=== PATIENT | female | born 1950 ===

== ENCOUNTER 2017-07-29 09:20 | Inpatient (IN) | payer MEDICARE, MEDICAID ==
--- NOTE | 2017-07-29 09:38 | ED PDOC ---
HPI: Back Time Seen by Provider: 07/29/17 09:28 History Per: Patient Onset/Duration Of Symptoms: Days (1) Quality Of Discomfort: Stabbing Severity: Moderate Pain Scale Rating Of: 4 Previous Symptoms: Back Pain Associated Symptoms: None Exacerbating Factor(s): Movement Additional Complaint(s): Left sided low back pain radiates down left buttock and leg, Worse this AM. No weakness or parasthesias. Pain exacerbated by movement. No urinary sxs. Past Medical History - Medical History PMH: Diabetes, HTN, Hypercholesterolemia - Family History Family History: States: Unknown Family Hx - Allergies Allergies/Adverse Reactions: Allergies Allergy/AdvReac Type Severity Reaction Status Date / Time Unobtainable Allergy Verified 07/29/17 09:30 Review of Systems ROS Statement: Except As Marked, All Systems Reviewed And Found Negative Musculoskeletal: Positive for: Back Pain Physical Exam - Reviewed Nursing Documentation Reviewed: Yes Vital Signs Reviewed: Yes - Physical Exam Appears: Positive for: Non-toxic, No Acute Distress Head Exam: Positive for: ATRAUMATIC, NORMAL INSPECTION, NORMOCEPHALIC Skin: Positive for: Normal Color, Warm, DRY Eye Exam: Positive for: EOMI, Normal appearance, PERRL ENT: Positive for: Normal ENT Inspection Neck: Positive for: Normal, Painless ROM Cardiovascular/Chest: Positive for: Regular Rate, Rhythm Respiratory: Positive for: CNT, Normal Breath Sounds Gastrointestinal/Abdominal: Positive for: Normal Exam, Bowel Sounds, Soft Back: Positive for: Normal Inspection, Vertebral Tenderness (Lower lumbar area) Extremity: Positive for: Normal ROM Neurologic/Psych: Positive for: Alert, Oriented, Other (Pasin straight leg raise left side 30 degrees.). Negative for: Motor/Sensory Deficits Disposition - Clinical Impression Clinical Impression: Back pain - Patient ED Disposition Is Patient to be Admitted: Yes - Disposition Disposition Time: 09:39 Condition: FAIR - Pt Status Changed To: Hospital Disposition Of: Inpatient - Admit Certification Admit to Inpatient:: After my assessment, the patient will require hospitalization for at least two midnights. This is because of the severity of symptoms shown, intensity of services needed, and/or the medical risk in this patient being treated as an outpatient. - POA Present On Arrival: None
[2017-07-29 10:25] LABS: BASO # 0.1 K/uL (0.0-0.2); BASO % 0.8 % (0.0-2.0); EOS # 0.2 K/uL (0.0-0.7); EOS % 2.3 % (0.0-4.0); HEMOGLOBIN 12.6 g/dL (12.0-16.0); LYMPH # 1.3 K/uL (1.0-4.3); LYMPH % 18.4 % (20.0-40.0); MEAN CELL VOLUME 93.5 fl (81.0-99.0); MEAN CORPUSCULAR HEMOGLOBIN 31.3 pg (27.0-31.0); MEAN CORPUSCULAR HGB CONC 33.4 g/dL (33.0-37.0); MEAN PLATELET VOLUME 8.7 fl (7.2-11.7); MONO # 0.8 K/uL (0.0-0.8); MONO % 10.7 % (0.0-10.0); NEUT # 4.8 K/uL (1.8-7.0); NEUT % 67.8 % (50.0-75.0); NRBC % 0.1 % (0.0-0.0); RBC 4.03 Mil/uL (3.80-5.20); RED CELL DISTRIBUTION WIDTH 14.4 % (11.5-14.5); WHITE BLOOD COUNT 7.1 K/uL (4.8-10.8)
[2017-07-29 10:47] LABS: ALB/GLOB RATIO 1.2 (1.0-2.1); ALBUMIN 4.3 g/dL (3.5-5.0); ALT/SGPT 30 U/L (9-52); AST/SGOT 29 U/L (14-36); BLOOD UREA NITROGEN 13 mg/dl (7-17); CALCIUM 9.6 mg/dL (8.4-10.2); GFR AFRICAN-AMERICAN > 60; GFR NON-AFRICAN AMERICAN > 60
--- NOTE | 2017-07-29 11:32 | CP.PCM.HP ---
<Gordo Man - Last Filed: 07/29/17 11:38> History of Present Illness - History of Present Illness History of Present Illness: 67 y/o F with PMHx of NIDDM and HTN presents to ED c/o chronic, worsening lower back pain. As per patient pain is not improving with outpatient pain meds and has been worsening for the past year, associated with radiation to R/LE and paresthesias to both LE intermittent. Denies changes in urination or stools. Denies saddle anesthesia, headaches or fever. Patient she has had pain for many years that was controlled with NSAIDs but they stopped working. Admits Hx of fall 2 y/a. Has no other complains. Report of MRI of the LS as outpatient reviewed and shows multilevel lumbar disc herniation from L2-S1. Present on Admission - Present on Admission Any Indicators Present on Admission: No Review of Systems - Review of Systems All systems: reviewed and no additional remarkable complaints except - Cardiovascular Cardiovascular: absent: Chest Pain, Chest Pain at Rest, Edema - Respiratory Respiratory: absent: Cough, Dyspnea, Hemoptysis - Musculoskeletal Musculoskeletal: Back Pain, Muscle Cramps, Radiating Pain into Limb, Tingling Past Patient History - Past Social History Smoking Status: Never Smoked - CARDIAC Hx Hypercholesterolemia: Yes Hx Hypertension: Yes - PSYCHIATRIC Hx Substance Use: No - SURGICAL HISTORY Hx Surgeries: Yes Hx Vascular Surgery: Yes (VV) - ANESTHESIA Hx Anesthesia: Yes Meds Allergies/Adverse Reactions: Allergies Allergy/AdvReac Type Severity Reaction Status Date / Time No Known Allergies Allergy Verified 07/29/17 12:27 Physical Exam - Constitutional Appears: Non-toxic - Head Exam Head Exam: ATRAUMATIC - Eye Exam Eye Exam: EOMI, PERRL - ENT Exam ENT Exam: Mucous Membranes Moist - Respiratory Exam Respiratory Exam: Clear to Auscultation Bilateral, NORMAL BREATHING PATTERN. absent: Decreased Breath Sounds, Rales, Wheezes, Respiratory Distress - Cardiovascular Exam Cardiovascular Exam: +S1, +S2. absent: Gallop, REGULAR RHYTHM - GI/Abdominal Exam GI & Abdominal Exam: Normal Bowel Sounds, Soft. absent: Guarding, Rebound, Rigid, Tenderness - Extremities Exam Extremities exam: Negative for: normal inspection (VV B/L) - Back Exam Back exam: tenderness, vertebral tenderness - Neurological Exam Neurological exam: Alert, Oriented x3 - Psychiatric Exam Psychiatric exam: Normal Affect, Normal Mood - Skin Skin Exam: Normal Color, Warm Results - Vital Signs Recent Vital Signs: Last Vital Signs Temp 97.4 F L 07/29/17 09:39 Pulse 84 07/29/17 09:39 Resp 18 07/29/17 09:39 BP 136/77 07/29/17 10:35 Pulse Ox 99 07/29/17 09:39 - Labs Result Diagrams: 07/29/17 10:18 07/29/17 10:18 Labs: Laboratory Results - last 24 hr 07/29/17 07/29/17 07/29/17 10:18 10:18 10:18 WBC 7.1 RBC 4.03 Hgb 12.6 Hct 37.7 MCV 93.5 MCH 31.3 H MCHC 33.4 RDW 14.4 Plt Count 243 MPV 8.7 Neut % (Auto) 67.8 Lymph % (Auto) 18.4 L [place] % (Auto) 10.7 H Eos % (Auto) 2.3 Baso % (Auto) 0.8 Neut # (Auto) 4.8 Lymph # (Auto) 1.3 [place] # (Auto) 0.8 Eos # (Auto) 0.2 Baso # (Auto) 0.1 PT 11.0 INR 1.0 Sodium 144 Potassium 4.6 Chloride 105 Carbon Dioxide 30 Anion Gap 14 BUN 13 Creatinine 0.7 Est GFR ( Amer) > 60 Est GFR (Non-Af Amer) > 60 Random Glucose 91 Calcium 9.6 Total Bilirubin 0.2 AST 29 ALT 30 Alkaline Phosphatase 80 Total Protein 7.9 Albumin 4.3 Globulin 3.7 Albumin/Globulin Ratio 1.2 Assessment & Plan - Assessment and Plan (Free Text) Assessment: Intractable chronic lower back pain with multilevel lumbar disc herniations Pain control NeuroSx consult CBC, CMP, Coags WNL EKG: Sinus arrhythmia CXR no Active disease(Pending official report) NIDDM Controlled C/W DM meds HTN controlled: Will stop lisinopril for now SCDs Patient is cleared for Sx to lower back if needed at this time <Flakito Yee - Last Filed: 07/29/17 14:54> Results - Vital Signs Recent Vital Signs: Last Vital Signs Temp 97.4 F L 07/29/17 09:39 Pulse 84 07/29/17 09:39 Resp 18 07/29/17 09:39 BP 136/77 07/29/17 12:35 Pulse Ox 99 07/29/17 09:39 - Labs Result Diagrams: 07/29/17 10:18 07/29/17 10:18 Labs: Laboratory Results - last 24 hr 07/29/17 07/29/17 07/29/17 10:18 10:18 10:18 WBC 7.1 RBC 4.03 Hgb 12.6 Hct 37.7 MCV 93.5 MCH 31.3 H MCHC 33.4 RDW 14.4 Plt Count 243 MPV 8.7 Neut % (Auto) 67.8 Lymph % (Auto) 18.4 L [place] % (Auto) 10.7 H Eos % (Auto) 2.3 Baso % (Auto) 0.8 Neut # (Auto) 4.8 Lymph # (Auto) 1.3 [place] # (Auto) 0.8 Eos # (Auto) 0.2 Baso # (Auto) 0.1 PT 11.0 INR 1.0 Sodium 144 Potassium 4.6 Chloride 105 Carbon Dioxide 30 Anion Gap 14 BUN 13 Creatinine 0.7 Est GFR ( Amer) > 60 Est GFR (Non-Af Amer) > 60 Random Glucose 91 Calcium 9.6 Total Bilirubin 0.2 AST 29 ALT 30 Alkaline Phosphatase 80 Total Protein 7.9 Albumin 4.3 Globulin 3.7 Albumin/Globulin Ratio 1.2 Assessment & Plan - Assessment and Plan (Free Text) Plan: Pt seen on rounds with resident. Reviewed plan and agree with above documentation
--- NOTE | 2017-07-29 12:37 | RAD ---
HISTORY: preop COMPARISON: No prior. TECHNIQUE: Chest PA and lateral FINDINGS: LUNGS: No active pulmonary disease. PLEURA: No significant pleural effusion identified. No pneumothorax apparent. CARDIOVASCULAR: No radiographic findings to suggest acute or significant cardiovascular disease. OSSEOUS STRUCTURES: No significant abnormalities. VISUALIZED UPPER ABDOMEN: Normal. OTHER FINDINGS: None. IMPRESSION: No active disease.
[2017-07-29] MEDS ORDERED: Glucagon Recombinant 1 mg Inj IM PRN (13:17)
[2017-07-29] MEDS ORDERED: Dextrose 50% SYRINGE Inj (50 ml) IV PRN (13:17)
--- NOTE | 2017-07-29 17:14 | CP.PCM.CON ---
History of Present Illness - History of Present Illness History of Present Illness: The patient is a 67 y/o female with h/o DM, HTN and hypercholesterolemia who presented to the ER today with complaints of significant lower back pain. The pain had been intermittent over the past 2-3 years but had progressively worsened over the past 2-3 months. It has been increasingly difficult to perform her usual daily activities over the past few days such as walking, sitting and stairclimbing, prompting her visit to the ER. The pain has been resistant to conservative management with exercises and oral NSAID's and pain medications. The pain radiates down her right lower extremity frequently. There is also numbness and tingling that travels down her both LE. She denies any saddle parasthesias, bowel or bladder dysfunction. She denies CP/SOB/N/V/D/ headache/dizziness. Dr. Bowen was consulted for neurosurgical evaluation. Review of Systems - Review of Systems All systems: reviewed and no additional remarkable complaints except Review of Systems: As per HPI Past Patient History - Past Medical History & Family History Past Medical History?: Yes Past Family History: Reviewed and not pertinent - Past Social History Smoking Status: Never Smoked Chewing Tobacco Use: No Cigar Use: No Alcohol: None Drugs: Denies Domestic Violence: Negative - CARDIAC Hx Cardiac Disorders: Yes Hx Hypercholesterolemia: Yes Hx Hypertension: Yes - PULMONARY Hx Respiratory Disorders: No - NEUROLOGICAL Hx Neurological Disorder: No - HEENT Hx HEENT Problems: No - RENAL Hx Chronic Kidney Disease: No - ENDOCRINE/METABOLIC Hx Endocrine Disorders: Yes Hx Diabetes Mellitus Type 1: Yes - HEMATOLOGICAL/ONCOLOGICAL Hx Blood Disorders: No - INTEGUMENTARY Hx Dermatological Problems: No - MUSCULOSKELETAL/RHEUMATOLOGICAL Hx Musculoskeletal Disorders: Yes Hx Back Pain: Yes Hx Falls: Yes - GASTROINTESTINAL Hx Gastrointestinal Disorders: No - GENITOURINARY/GYNECOLOGICAL Hx Genitourinary Disorders: No - PSYCHIATRIC Hx Psychophysiologic Disorder: No Hx Substance Use: No - SURGICAL HISTORY Hx Surgeries: Yes (Bilateral LE varicose veins removal) Hx Vascular Surgery: Yes (Varicose vein) Other/Comment: Mole removal surgery - ANESTHESIA Hx Anesthesia: Yes Hx Anesthesia Reactions: No Hx Malignant Hyperthermia: No Has any member of the family had a problem w/ anesthesia?: No Meds Allergies/Adverse Reactions: Allergies Allergy/AdvReac Type Severity Reaction Status Date / Time No Known Allergies Allergy Verified 03/20/18 12:27 - Medications Medications: Current Medications Dextrose (Dextrose 50% Inj) 0 ml IV STAT PRN; Protocol PRN Reason: Hypoglycemia Protocol Dextrose (Glutose 15) 0 gm PO ONCE PRN; Protocol PRN Reason: Hypoglycemia Protocol Gabapentin (Neurontin) 300 mg PO Q8 [facility] Glipizide (Glucotrol Xl) 5 mg PO BID RITA Glucagon (Glucagen Diagnostic Kit) 0 mg IM STAT PRN; Protocol PRN Reason: Hypoglycemia Protocol Home Med (Empagliflozin [Jardiance]) 25 mg PO DAILY RITA Insulin Human Lispro (Humalog) 0 units SC ACHS [facility]ITA PRN Reason: Protocol Lisinopril (Zestril) 10 mg PO DAILY RITA Pantoprazole Sodium (Protonix Ec Tab) 40 mg PO DAILY RITA Physical Exam - Constitutional Appears: No Acute Distress - Head Exam Head Exam: ATRAUMATIC, NORMAL INSPECTION, NORMOCEPHALIC - Eye Exam Eye Exam: EOMI, Normal appearance, PERRL - ENT Exam ENT Exam: Mucous Membranes Moist - Neck Exam Neck exam: Positive for: Normal Inspection - Respiratory Exam Respiratory Exam: NORMAL BREATHING PATTERN - Back Exam Back exam: FULL ROM, paraspinal tenderness (R>L), vertebral tenderness - Neurological Exam Neurological exam: Alert, Oriented x3 Additional comments: Cranial nerves grossly intact, negative SLR bilaterally in supine and seated position - Expanded Neurological Exam Expanded Sensory exam: Lower Extremity 2 Point Discrimination: Normal, Lower Extremity Light Touch: Normal Neuro motor strength exam: Left Lower Extremity: 4, Right Lower Extremity: 5 DTR: Achilles Tendon Left: 2+, Achilles Tendon Right: 2+, Patellar Left: 2+, Patellar Right: 2+ - Psychiatric Exam Psychiatric exam: Normal Affect, Normal Mood - Skin Skin Exam: Normal Color Results - Vital Signs Recent Vital Signs: Last Vital Signs Temp 98.1 F 07/29/17 15:53 Pulse 66 07/29/17 15:59 Resp 19 07/29/17 15:59 BP 107/65 07/29/17 15:53 Pulse Ox 100 07/29/17 15:53 - Labs Result Diagrams: 07/29/17 10:18 07/29/17 10:18 Labs: Laboratory Results - last 24 hr 07/29/17 07/29/17 07/29/17 10:18 10:18 10:18 WBC 7.1 RBC 4.03 Hgb 12.6 Hct 37.7 MCV 93.5 MCH 31.3 H MCHC 33.4 RDW 14.4 Plt Count 243 MPV 8.7 Neut % (Auto) 67.8 Lymph % (Auto) 18.4 L [place] % (Auto) 10.7 H Eos % (Auto) 2.3 Baso % (Auto) 0.8 Neut # (Auto) 4.8 Lymph # (Auto) 1.3 [place] # (Auto) 0.8 Eos # (Auto) 0.2 Baso # (Auto) 0.1 PT 11.0 INR 1.0 Sodium 144 Potassium 4.6 Chloride 105 Carbon Dioxide 30 Anion Gap 14 BUN 13 Creatinine 0.7 Est GFR ( Amer) > 60 Est GFR (Non-Af Amer) > 60 POC Glucose (mg/dL) Random Glucose 91 Calcium 9.6 Total Bilirubin 0.2 AST 29 ALT 30 Alkaline Phosphatase 80 Total Protein 7.9 Albumin 4.3 Globulin 3.7 Albumin/Globulin Ratio 1.2 07/29/17 16:06 WBC RBC Hgb Hct MCV MCH MCHC RDW Plt Count MPV Neut % (Auto) Lymph % (Auto) [place] % (Auto) Eos % (Auto) Baso % (Auto) Neut # (Auto) Lymph # (Auto) [place] # (Auto) Eos # (Auto) Baso # (Auto) PT INR Sodium Potassium Chloride Carbon Dioxide Anion Gap BUN Creatinine Est GFR ( Amer) Est GFR (Non-Af Amer) POC Glucose (mg/dL) 68 Random Glucose Calcium Total Bilirubin AST ALT Alkaline Phosphatase Total Protein Albumin Globulin Albumin/Globulin Ratio Assessment & Plan (1) Lumbar disc herniation with radiculopathy Assessment and Plan: -pain control -WBAT with assistive device -NPO pMN -plan for OR tyler AM for Right L5-S1 gayatri-laminectomy -Procedure Risks/mikael/adv/disadv were discussed with the patient in detail and she understands. The patient agrees to proceed with listed procedure. -consult appreciated -patient's case and plan was discussed in agreement with Dr. Bowen Status: Acute
[2017-07-29] MEDS: Insulin Lispro (humaLOG) 100 Units/ml Inj SC SCH ×2 (18:41→22:00)
[2017-07-30] MEDS ORDERED: Dextrose 5%/Lactated Ringer's 1,000 ML IV SCH (02:30)
[2017-07-30] MEDS: Insulin Lispro (humaLOG) 100 Units/ml Inj SC SCH ×4 (06:35→21:35)
[2017-07-30] MEDS ORDERED: Rocuronium 10 mg/ml (5 ml) ONE (07:15)
[2017-07-30] MEDS ORDERED: Succinylcholine 200 mg/10 ml Inj IV ONE (07:15)
[2017-07-30] MEDS ORDERED: Midazolam 2 MG/2 ML VIAL ONE (07:15)
[2017-07-30] MEDS ORDERED: Propofol 10 mg/ml Inj (20 ML) ONE (07:15)
[2017-07-30] MEDS ORDERED: ePHEDrine 50 mg/ml Inj ONE (07:15)
[2017-07-30] MEDS ORDERED: Lidocaine 4% (Laryng-O-Jet) Kit MM ONE (07:15)
[2017-07-30] MEDS ORDERED: Bupivacaine HCl 0.5% PF (10 ml) Inj ONE ×2 (07:16→08:23)
[2017-07-30] MEDS ORDERED: ceFAZolin IV 2 gm in Dextrose 2 GM/50 ML BAG IVPB ONE (07:17)
[2017-07-30] MEDS ORDERED: Lidocaine 1% w Epi 1:100,000 Inj ONE (07:17)
[2017-07-30] MEDS ORDERED: Thrombin Topical 5,000 Int Units Spray Kit ONE (07:17)
[2017-07-30] MEDS ORDERED: Absorbable Gelatin Sponge Size 100 ONE (07:17)
[2017-07-30] MEDS ORDERED: Lactated Ringer's 1,000 ML IV ONE (07:30)
[2017-07-30] MEDS ORDERED: Lidocaine 1% w Epi 1:100,000 Inj INJ ONE (07:48)
[2017-07-30] MEDS ORDERED: Absorbable Gelatin Sponge Size 100 TP ONE (08:20)
[2017-07-30] MEDS ORDERED: Thrombin Topical 5,000 Int Units Spray Kit TOP ONE (08:20)
[2017-07-30] MEDS ORDERED: HEMOSTATIC MATRIX 10 ML DIS.NEEDLE TOP ONE (08:25)
[2017-07-30] MEDS ORDERED: Neostigmine 1:1000 (1 mg/ml) Inj ONE (08:25)
[2017-07-30] MEDS ORDERED: Bupivacaine HCl 0.5% PF (10 ml) Inj IJ ONE ×2 (08:30→08:50)
--- NOTE | 2017-07-30 09:04 | PCM.SURG1 ---
Surgeon's Initial Post Op Note - Surgeon's Notes Surgeon: Ralph Bowen MD Casing Trimmer: Donovan KELSEY Type of Anesthesia: General Endo Anesthesia Administered By: Melchor Gann MD Pre-Operative Diagnosis: L4-5 and L5-S1 HNP Operative Findings: L4-5/L5-S1 HNP, Right L5-S1 facet arthropathy Post-Operative Diagnosis: same Operation Performed: Right L4-S1 gayatri-laminectomy, medial facetectomy and decompression Specimen/Specimens Removed: none Estimated Blood Loss: EBL {In ML}: 25 Blood Products Given: N/A Drains Used: Cecil Sands (x1) Post-Op Condition: Good Date of Surgery/Procedure: 07/30/17 Time of Surgery/Procedure: 07:45
[2017-07-30] MEDS ORDERED: Sodium Chloride 0.9% 1,000 ML IV SCH (09:15)
--- NOTE | 2017-07-30 09:45 | CP.PCM.PN ---
Subjective - Date & Time of Evaluation Date of Evaluation: 07/30/17 Time of Evaluation: 10:30 - Subjective Subjective: Evaluated after surgical intervention this morning at the recovery room .Stable , c/o sore throat, denies CP, SOB, nausea. Lower back pain mild at this time. Patient recently received dose of morphine. Still slightly somnolent after anesthesia Objective - Vital Signs/Intake and Output Vital Signs (last 24 hours): Temp Pulse Resp BP Pulse Ox 97.1 F L 70 20 139/78 100 07/30/17 09:35 07/30/17 09:35 07/30/17 09:35 07/30/17 09:35 07/30/17 09:35 Intake and Output: 07/30/17 07/30/17 06:59 18:59 Intake Total 900 Balance 900 - Medications Medications: Current Medications Acetaminophen (Tylenol 325mg Tab) 650 mg PO Q4 PRN PRN Reason: Fever 101 degrees fahrenheit Cyclobenzaprine HCl (Flexeril) 5 mg PO TID PRN PRN Reason: Muscle spasm Dextrose (Dextrose 50% Inj) 0 ml IV STAT PRN; Protocol PRN Reason: Hypoglycemia Protocol Dextrose (Glutose 15) 0 gm PO ONCE PRN; Protocol PRN Reason: Hypoglycemia Protocol Docusate Sodium (Colace) 100 mg PO BID RITA Gabapentin (Neurontin) 300 mg PO Q8 [facility] Last Admin: 07/30/17 00:08 Dose: 300 mg Glipizide (Glucotrol Xl) 5 mg PO BID RITA Glucagon (Glucagen Diagnostic Kit) 0 mg IM STAT PRN; Protocol PRN Reason: Hypoglycemia Protocol Home Med (Empagliflozin [Jardiance]) 25 mg PO DAILY [facility] Dextrose/Lactated Ringer's (Dextrose 5%/Lactated Ringer's) 1,000 mls @ 110 mls/ hr IV .Q9H6M [facility] Stop: 07/31/17 02:28 Last Admin: 07/30/17 02:42 Dose: 110 mls/hr Cefazolin Sodium/Dextrose (Ancef Iv 1 Gm Duplex) 1 gm in 50 mls @ 50 mls/hr IVPB Q8 [facility]ITA PRN Reason: Protocol Stop: 07/31/17 17:59 Sodium Chloride (Sodium Chloride 0.9%) 1,000 mls @ 100 mls/hr IV .Q10H [facility] Stop: 07/31/17 09:11 Insulin Human Lispro (Humalog) 0 units SC ACHS [facility] PRN Reason: Protocol Last Admin: 07/30/17 06:35 Dose: Not Given Lisinopril (Zestril) 10 mg PO DAILY [facility] Metoclopramide HCl (Reglan) 10 mg IVP ONCE PRN PRN Reason: Nausea/Vomiting Stop: 07/30/17 11:03 Morphine Sulfate (Morphine) 2 mg IVP Q10M PRN PRN Reason: Pain, severe (8-10) Stop: 07/30/17 11:03 Last Admin: 07/30/17 09:35 Dose: 2 mg Morphine Sulfate (Morphine) 2 mg IVP Q4 PRN PRN Reason: Pain, severe (8-10) Ondansetron HCl (Zofran Inj) 4 mg IVP ONCE PRN PRN Reason: Nausea/Vomiting Oxycodone/Acetaminophen (Percocet 5/325 Mg Tab) 2 tab PO Q4 PRN PRN Reason: Pain, severe (8-10) Stop: 08/02/17 09:11 Pantoprazole Sodium (Protonix Ec Tab) 40 mg PO DAILY [facility] - Labs Labs: 07/29/17 10:18 07/29/17 10:18 PT 11.0 Seconds (9.8-13.1) 07/29/17 10:18 INR 1.0 (0.9-1.2) 07/29/17 10:18 - Constitutional Appears: Non-toxic - Eye Exam Eye Exam: PERRL - ENT Exam ENT Exam: Mucous Membranes Moist - Respiratory Exam Respiratory Exam: Clear to Ausculation Bilateral, NORMAL BREATHING PATTERN. absent: Decreased Breath Sounds, Rales, Respiratory Distress - Cardiovascular Exam Cardiovascular Exam: REGULAR RHYTHM, +S1, +S2. absent: Gallop - GI/Abdominal Exam GI & Abdominal Exam: Soft, Tenderness (mild, diffuse), Normal Bowel Sounds. absent: Distended, Guarding, Rigid, Rebound - Extremities Exam Extremities Exam: Normal Capillary Refill. absent: Joint Swelling, Pedal Edema Additional comments: No signs of acute neurovascular compromise - Neurological Exam Neurological Exam: Alert, Awake, Oriented x3 - Psychiatric Exam Psychiatric exam: Normal Affect, Normal Mood - Skin Skin Exam: Normal Color, Warm Assessment and Plan - Assessment and Plan (Free Text) Assessment: S/P Lumbar laminectomy L5-S1 POD0 Stable Neurosurgery consult appreciated Advance diet as tolerated Pain control and supportive measures C/W Current meds
--- NOTE | 2017-07-30 11:13 | CARD ---
APPROVED REPORT EKG Measurement Heart [id number] <Conclusion> Normal sinus rhythm with sinus arrhythmia Normal ECG
[2017-07-30] MEDS: GlipiZIDE 5 mg SR Tab PO SCH ×2 (13:37→17:13)
[2017-07-30] MEDS: Pantoprazole 40 mg EC Tab PO SCH (13:38)
--- NOTE | 2017-07-30 14:05 | RAD ---
PROCEDURE: Intraoperative Fluoroscopy. HISTORY: LUMBAR LAMINECTOMY FINDINGS: Fluoroscopic assistance was provided. 3.7 seconds fluoroscopy time utilized during this procedure. Radiation dose = 1.98 mGy. Please refer to the operative report for additional details.
--- NOTE | 2017-07-30 14:08 | OP ---
PROCEDURE DATE: 07/30/2017 PREOPERATIVE DIAGNOSIS: Lumbar spondylosis. POSTOPERATIVE DIAGNOSIS: Lumbar spondylosis. PROCEDURE: Right L4-L5 and L5-S1 hemilaminotomy and medial facetectomy and decompression. SURGEON: Ralph Bowen MD GOLD ASSAYER: Donovan ADAM, he stayed throughout the case from the beginning to the end, helped me perform the surgery. DESCRIPTION OF PROCEDURE: The patient was brought to the operating room. Anesthetized with general endotracheal anesthesia, placed in a prone position on the Cecil table. Care was taken to protect all pressure points. Back of the lumbar area thoroughly prepped and draped in same sterile manner after marking for a skin incision for lumbar laminectomy. After prepping and draping the area, skin has been incised and bleeding skin has been controlled by bipolar director special education. After using a Bovie director special education, paraspinal muscles have been detached, attachments of spinous process and lamina of L4, L5 and S1. Identification levels have been done with help of a fluoroscopy. A Selena retractor has been applied to alter the facet joint of L5-S1. By using a high speed drill, the lamina of L5-S1 medial part of the facets L4 had been drilled. Drilling is continued top and bottom of the ligamentum flavum has seen. Drilling is also continued on the medial facets till the turn of ligament has been seen. Once this has been done, thinned out some lamina, medial part of the facets and ligamentum flavum has been removed, decompressing this area. Similarly at L4-L5, hemilaminotomy, medial facetectomy by thinning the bone out and by removing the thinned out bone, allowing the ligamentum flavum decompression has been achieved at L4-L5 as well. After hemostasis best achieved, Cecil drain was placed in the wound, brought out through a separate stab near skin incision. Fascia across the interspinous ligaments and spinous process with 1 Vicryl, subcutaneous tissue with 3 Vicryl and skin has been closed with intradermal 3 Vicryl stitches. The patient tolerated the procedure. After the procedure, mobilized to the recovery room in stabilized condition. Ralph Bowen MD [facility] # [id number]
[2017-07-30] MEDS: ceFAZolin IV 1 gm in Dextrose 1 GM/50 ML BAG IVPB SCH (17:10)
[2017-07-31] MEDS: ceFAZolin IV 1 gm in Dextrose 1 GM/50 ML BAG IVPB SCH ×3 (00:54→16:41)
[2017-07-31] MEDS: Oxycodone/Acetaminophen 5/325 mg Tab PO PRN ×3 (03:46→22:11)
[2017-07-31 07:01] LABS: HEMOGLOBIN 11.5 g/dL (12.0-16.0); MEAN CELL VOLUME 93.3 fl (81.0-99.0); MEAN CORPUSCULAR HGB CONC 33.3 g/dL (33.0-37.0); RBC 3.7 Mil/uL (3.80-5.20); RED CELL DISTRIBUTION WIDTH 14.3 % (11.5-14.5); WHITE BLOOD COUNT 9.2 K/uL (4.8-10.8)
[2017-07-31 07:15] LABS: BLOOD UREA NITROGEN 13 mg/dl (7-17); CALCIUM 8.7 mg/dL (8.4-10.2); GFR AFRICAN-AMERICAN > 60; GFR NON-AFRICAN AMERICAN > 60
[2017-07-31] MEDS ORDERED: Simethicone 80 mg Chewtab PO PRN (07:50)
--- NOTE | 2017-07-31 08:09 | CP.PCM.PN ---
Subjective - Date & Time of Evaluation Date of Evaluation: 07/31/17 Time of Evaluation: 08:07 - Subjective Subjective: Patient seen and examined at bedside comfortable. She states that her lower back pain is much improved as compared to before her procedure. She is also moving her RLE better and there are less parasthesias. She has been able to void without difficulty but is having mid lower abd pain. She has not passed much gas this AM. No acute events overnight. Objective - Vital Signs/Intake and Output Vital Signs (last 24 hours): Temp Pulse Resp BP Pulse Ox 99.2 F 68 18 116/65 96 07/31/17 03:50 07/31/17 03:50 07/31/17 03:50 07/31/17 03:50 07/31/17 03:50 - Medications Medications: Current Medications Acetaminophen (Tylenol 325mg Tab) 650 mg PO Q4 PRN PRN Reason: Fever 101 degrees fahrenheit Cyclobenzaprine HCl (Flexeril) 5 mg PO TID PRN PRN Reason: Muscle spasm Dextrose (Dextrose 50% Inj) 0 ml IV STAT PRN; Protocol PRN Reason: Hypoglycemia Protocol Dextrose (Glutose 15) 0 gm PO ONCE PRN; Protocol PRN Reason: Hypoglycemia Protocol Docusate Sodium (Colace) 100 mg PO BID [facility] Last Admin: 07/30/17 17:18 Dose: 100 mg Gabapentin (Neurontin) 300 mg PO Q8 [facility] Last Admin: 07/31/17 01:17 Dose: 300 mg Glipizide (Glucotrol Xl) 5 mg PO BID [facility] Last Admin: 07/30/17 17:13 Dose: 5 mg Glucagon (Glucagen Diagnostic Kit) 0 mg IM STAT PRN; Protocol PRN Reason: Hypoglycemia Protocol Home Med (Empagliflozin [Jardiance]) 25 mg PO DAILY [facility] Last Admin: 07/30/17 09:00 Dose: Not Given Cefazolin Sodium/Dextrose (Ancef Iv 1 Gm Duplex) 1 gm in 50 mls @ 50 mls/hr IVPB Q8 [facility] PRN Reason: Protocol Stop: 07/31/17 17:59 Last Admin: 07/31/17 00:54 Dose: 50 mls/hr Sodium Chloride (Sodium Chloride 0.9%) 1,000 mls @ 100 mls/hr IV .Q10H [facility] Stop: 07/31/17 09:11 Last Admin: 07/30/17 15:00 Dose: 100 mls/hr Insulin Human Lispro (Humalog) 0 units SC ACHS [facility] PRN Reason: Protocol Last Admin: 07/30/17 21:35 Dose: Not Given Lisinopril (Zestril) 10 mg PO DAILY [facility] Last Admin: 07/30/17 13:38 Dose: Not Given Morphine Sulfate (Morphine) 2 mg IVP Q4 PRN PRN Reason: Pain, severe (8-10) Last Admin: 07/31/17 01:22 Dose: 2 mg Ondansetron HCl (Zofran Inj) 4 mg IVP ONCE PRN PRN Reason: Nausea/Vomiting Oxycodone/Acetaminophen (Percocet 5/325 Mg Tab) 2 tab PO Q4 PRN PRN Reason: Pain, severe (8-10) Stop: 08/02/17 09:11 Last Admin: 07/31/17 03:46 Dose: 2 tab Pantoprazole Sodium (Protonix Ec Tab) 40 mg PO DAILY [facility] Last Admin: 07/30/17 13:38 Dose: Not Given Simethicone (Mylicon Chew Tab) 80 mg PO QID PRN PRN Reason: Flatulence - Labs Labs: 07/31/17 05:35 07/31/17 05:35 PT 11.0 Seconds (9.8-13.1) 07/29/17 10:18 INR 1.0 (0.9-1.2) 07/29/17 10:18 - Back Exam Additional comments: Lumbar spine: Dressings clean/dry/intact, drain with mild sangiunous drainage ( 75cc output overnight), mild tenderness 2nd to surgery, neg SLR b/l, sensation intact DP/SP/TN, motor intact EHL/FHL/TA/G/Q/HS/hip flexors, pedal pulses intact , compartments soft and NT b/l Assessment and Plan (1) Lumbar disc herniation with radiculopathy Assessment & Plan: Patient is POD#1 s/p R L4-S1 hemilaminectomy doing well -Abd pain most likely due to gas, simethicone prn, OOB -Drain output high, will keep and monitor until below 50cc q shift, possibly pull tyler AM -Continue IV abx until drain removed -PT/OT WBAT with assistive device, prepare for d/c -care as per medical team -d/c planning -case and plan d/w Dr. Bowen in agreement Status: Acute
[2017-07-31] MEDS: Insulin Lispro (humaLOG) 100 Units/ml Inj SC SCH ×4 (08:37→22:00)
[2017-07-31] MEDS: Pantoprazole 40 mg EC Tab PO SCH (08:42)
[2017-07-31] MEDS ORDERED: Enoxaparin 40 mg Syringe SC SCH (09:00)
[2017-07-31] MEDS: GlipiZIDE 5 mg SR Tab PO SCH ×2 (10:43→16:48)
--- NOTE | 2017-07-31 11:04 | CP.PCM.PN ---
Subjective - Date & Time of Evaluation Date of Evaluation: 07/31/17 Time of Evaluation: 09:00 - Subjective Subjective: POD1 Stable. C/O suprapubic pain, denies dysuria or urinary retention. No BM for 2 days. Feels nauseated. Denies vomiting, CP, SOB, palpitations. Lower back pain is mild and controlled with meds. Drainage 25ml, sanguineous. Afebrile Objective - Vital Signs/Intake and Output Vital Signs (last 24 hours): Temp Pulse Resp BP Pulse Ox 98.3 F 70 20 121/61 92 L 07/31/17 08:10 07/31/17 09:20 07/31/17 08:10 07/31/17 09:20 07/31/17 09:20 - Medications Medications: Current Medications Acetaminophen (Tylenol 325mg Tab) 650 mg PO Q4 PRN PRN Reason: Fever 101 degrees fahrenheit Cyclobenzaprine HCl (Flexeril) 5 mg PO TID PRN PRN Reason: Muscle spasm Dextrose (Dextrose 50% Inj) 0 ml IV STAT PRN; Protocol PRN Reason: Hypoglycemia Protocol Dextrose (Glutose 15) 0 gm PO ONCE PRN; Protocol PRN Reason: Hypoglycemia Protocol Docusate Sodium (Colace) 100 mg PO BID [facility] Last Admin: 07/31/17 10:42 Dose: 100 mg Gabapentin (Neurontin) 300 mg PO Q8 [facility] Last Admin: 07/31/17 10:43 Dose: 300 mg Glipizide (Glucotrol Xl) 5 mg PO BID [facility] Last Admin: 07/31/17 10:43 Dose: 5 mg Glucagon (Glucagen Diagnostic Kit) 0 mg IM STAT PRN; Protocol PRN Reason: Hypoglycemia Protocol Home Med (Empagliflozin [Jardiance]) 25 mg PO DAILY [facility] Last Admin: 07/31/17 10:42 Dose: 25 mg Cefazolin Sodium/Dextrose (Ancef Iv 1 Gm Duplex) 1 gm in 50 mls @ 50 mls/hr IVPB Q8 [facility] PRN Reason: Protocol Stop: 07/31/17 17:59 Last Admin: 07/31/17 08:36 Dose: 50 mls/hr Insulin Human Lispro (Humalog) 0 units SC ACHS [facility] PRN Reason: Protocol Last Admin: 07/31/17 08:37 Dose: Not Given Losartan Potassium (Cozaar) 50 mg PO DAILY [facility] Morphine Sulfate (Morphine) 2 mg IVP Q4 PRN PRN Reason: Pain, severe (8-10) Last Admin: 07/31/17 01:22 Dose: 2 mg Ondansetron HCl (Zofran Inj) 4 mg IVP ONCE PRN PRN Reason: Nausea/Vomiting Oxycodone/Acetaminophen (Percocet 5/325 Mg Tab) 2 tab PO Q4 PRN PRN Reason: Pain, severe (8-10) Stop: 08/02/17 09:11 Last Admin: 07/31/17 03:46 Dose: 2 tab Pantoprazole Sodium (Protonix Ec Tab) 40 mg PO DAILY [facility] Last Admin: 07/31/17 08:42 Dose: 40 mg Simethicone (Mylicon Chew Tab) 80 mg PO QID PRN PRN Reason: Flatulence Last Admin: 07/31/17 08:42 Dose: 80 mg - Labs Labs: 07/31/17 05:35 07/31/17 05:35 PT 11.0 Seconds (9.8-13.1) 07/29/17 10:18 INR 1.0 (0.9-1.2) 07/29/17 10:18 - Constitutional Appears: Non-toxic - Eye Exam Eye Exam: PERRL - ENT Exam ENT Exam: Mucous Membranes Moist - Respiratory Exam Respiratory Exam: Clear to Ausculation Bilateral, NORMAL BREATHING PATTERN. absent: Decreased Breath Sounds, Rales, Wheezes - Cardiovascular Exam Cardiovascular Exam: REGULAR RHYTHM, +S1, +S2. absent: Gallop - GI/Abdominal Exam GI & Abdominal Exam: Soft, Tenderness (Mild suprapubic), Normal Bowel Sounds. absent: Distended, Guarding, Rigid, Rebound - Extremities Exam Extremities Exam: Normal Capillary Refill. absent: Calf Tenderness, Normal Inspection (Varicous veins) - Neurological Exam Neurological Exam: Alert, Awake - Psychiatric Exam Psychiatric exam: Normal Affect, Normal Mood - Skin Skin Exam: Normal Color, Warm Assessment and Plan - Assessment and Plan (Free Text) Assessment: POD1 Lumbar laminectomy Stable Abd pain poss due to constipation. Patient on Colace. Will give 1 dose of lactulose now Unlikely urinary at this point. Will monitor C/w pain meds and supportive measures To receive 1 more dose(4) of Ancef IV Discharge planning tomorrow if less Sx drainage and improvement in general status
[2017-08-01 00:06] VITALS: TEMP 97.9
[2017-08-01] MEDS: ceFAZolin 1 GM in Sodium Chloride 0.9% 100 ML IVPB SCH ×2 (01:05→12:32)
[2017-08-01] MEDS: Oxycodone/Acetaminophen 5/325 mg Tab PO PRN ×2 (03:33→10:47)
[2017-08-01 07:48] VITALS: RESP 20
[2017-08-01] MEDS: Insulin Lispro (humaLOG) 100 Units/ml Inj SC SCH ×2 (08:18→11:21)
[2017-08-01] MEDS: GlipiZIDE 5 mg SR Tab PO SCH (08:20)
[2017-08-01] MEDS: Pantoprazole 40 mg EC Tab PO SCH (08:20)
[2017-08-01 08:21] VITALS: BP 105/61
[2017-08-01] MEDS ORDERED: Morphine 4 MG/ML VIAL IVP PRN (10:45)
[2017-08-01 11:08] VITALS: PULSE 80; O2SAT 98
--- NOTE | 2017-08-01 13:41 | CP.PCM.PN ---
Subjective - Date & Time of Evaluation Date of Evaluation: 08/01/17 Time of Evaluation: 13:39 - Subjective Subjective: Patient with family at bedside. Patient says she is feeling much better today. Still complaining of pain down RLE, but says that it is better after the surgery. Objective - Vital Signs/Intake and Output Vital Signs (last 24 hours): Temp Pulse Resp BP Pulse Ox 97.9 F 80 20 105/61 98 08/01/17 07:47 08/01/17 10:10 08/01/17 07:47 08/01/17 08:20 08/01/17 10:10 Intake and Output: 08/01/17 08/01/17 06:59 18:59 Intake Total 100 Output Total 20 Balance 80 - Medications Medications: Current Medications Acetaminophen (Tylenol 325mg Tab) 650 mg PO Q4 PRN PRN Reason: Fever 101 degrees fahrenheit Bacitracin (Bacitracin Oint) 1 applic TOP BID [facility] Cyclobenzaprine HCl (Flexeril) 5 mg PO TID PRN PRN Reason: Muscle spasm Dextrose (Dextrose 50% Inj) 0 ml IV STAT PRN; Protocol PRN Reason: Hypoglycemia Protocol Dextrose (Glutose 15) 0 gm PO ONCE PRN; Protocol PRN Reason: Hypoglycemia Protocol Docusate Sodium (Colace) 100 mg PO BID [facility] Last Admin: 08/01/17 08:20 Dose: 100 mg Gabapentin (Neurontin) 300 mg PO Q8 [facility] Last Admin: 08/01/17 08:20 Dose: 300 mg Glipizide (Glucotrol Xl) 5 mg PO BID [facility] Last Admin: 08/01/17 08:20 Dose: 5 mg Glucagon (Glucagen Diagnostic Kit) 0 mg IM STAT PRN; Protocol PRN Reason: Hypoglycemia Protocol Home Med (Empagliflozin [Jardiance]) 25 mg PO DAILY [facility] Last Admin: 08/01/17 08:21 Dose: 25 mg Insulin Human Lispro (Humalog) 0 units SC ACHS [facility] PRN Reason: Protocol Last Admin: 08/01/17 11:21 Dose: Not Given Losartan Potassium (Cozaar) 50 mg PO DAILY [facility] Last Admin: 08/01/17 08:20 Dose: 50 mg Morphine Sulfate (Morphine) 2 mg IVP Q4 PRN PRN Reason: Pain, severe (8-10) Ondansetron HCl (Zofran Inj) 4 mg IVP ONCE PRN PRN Reason: Nausea/Vomiting Oxycodone/Acetaminophen (Percocet 5/325 Mg Tab) 2 tab PO Q4 PRN PRN Reason: Pain, severe (8-10) Stop: 08/02/17 09:11 Last Admin: 08/01/17 10:47 Dose: 2 tab Pantoprazole Sodium (Protonix Ec Tab) 40 mg PO DAILY [facility] Last Admin: 08/01/17 08:20 Dose: 40 mg Simethicone (Mylicon Chew Tab) 80 mg PO QID PRN PRN Reason: Flatulence Last Admin: 07/31/17 08:42 Dose: 80 mg - Labs Labs: 07/31/17 05:35 07/31/17 05:35 PT 11.0 Seconds (9.8-13.1) 07/29/17 10:18 INR 1.0 (0.9-1.2) 07/29/17 10:18 - Back Exam Additional comments: RIGOBERTO 20cc, pulled. Incision intact, dry, no erythema noted skin abrasions to B flanks from abdominal binder, patient says it feels better with brace so will keep intact +great toe ext/DF/PF/knee flex/ext, sensation itnact BLE, calves soft NT neg homasn Assessment and Plan (1) Lumbar spondylosis Assessment & Plan: POD#2 s/p R L4/L5 and L5/S1 hemilaminectomy, medial facectecomy and decompression drain out PT notes appreciated, tolerating ambulation well bacitracin to abrasions, continue binder prn stable for d/c home PT recommends home services d/w dr. Bowen, agrees with above f/u Dr. Bowen approx 2 weeks call for appt Status: Acute
--- NOTE | 2017-08-01 16:01 | CP.PCM.DIS ---
Provider - Provider Date of Admission: 07/29/17 09:30 Attending physician: Flakito Yee MD Consults: neurosurgery Time Spent in preparation of Discharge (in minutes): 30 Diagnosis - Discharge Diagnosis (1) Back pain Status: Acute (2) Lumbar disc herniation with radiculopathy Status: Acute (3) Lumbar spondylosis Status: Acute Hospital Course - Lab Results Lab Results: Most Recent Lab Values WBC 9.2 K/uL (4.8-10.8) 07/31/17 05:35 RBC 3.70 Mil/uL (3.80-5.20) L 07/31/17 05:35 Hgb 11.5 g/dL (12.0-16.0) L 07/31/17 05:35 Hct 34.5 % (34.0-47.0) 07/31/17 05:35 MCV 93.3 fl (81.0-99.0) 07/31/17 05:35 MCH 31.0 pg (27.0-31.0) 07/31/17 05:35 MCHC 33.3 g/dL (33.0-37.0) 07/31/17 05:35 RDW 14.3 % (11.5-14.5) 07/31/17 05:35 Plt Count 232 K/uL (130-400) 07/31/17 05:35 MPV 8.7 fl (7.2-11.7) 07/29/17 10:18 Neut % (Auto) 67.8 % (50.0-75.0) 07/29/17 10:18 Lymph % (Auto) 18.4 % (20.0-40.0) L 07/29/17 10:18 Real % (Auto) 10.7 % (0.0-10.0) H 07/29/17 10:18 Eos % (Auto) 2.3 % (0.0-4.0) 07/29/17 10:18 Baso % (Auto) 0.8 % (0.0-2.0) 07/29/17 10:18 Neut # (Auto) 4.8 K/uL (1.8-7.0) 07/29/17 10:18 Lymph # (Auto) 1.3 K/uL (1.0-4.3) 07/29/17 10:18 Real # (Auto) 0.8 K/uL (0.0-0.8) 07/29/17 10:18 Eos # (Auto) 0.2 K/uL (0.0-0.7) 07/29/17 10:18 Baso # (Auto) 0.1 K/uL (0.0-0.2) 07/29/17 10:18 PT 11.0 Seconds (9.8-13.1) 07/29/17 10:18 INR 1.0 (0.9-1.2) 07/29/17 10:18 Sodium 141 mmol/l (132-148) 07/31/17 05:35 Potassium 4.5 MMOL/L (3.6-5.0) 07/31/17 05:35 Chloride 103 mmol/L (98-107) 07/31/17 05:35 Carbon Dioxide 27 mmol/L (22-30) 07/31/17 05:35 Anion Gap 16 (10-20) 07/31/17 05:35 BUN 13 mg/dl (7-17) 07/31/17 05:35 Creatinine 0.9 mg/dl (0.7-1.2) 07/31/17 05:35 Est GFR ( Amer) > 60 07/31/17 05:35 Est GFR (Non-Af Amer) > 60 07/31/17 05:35 POC Glucose (mg/dL) 89 mg/dL (65-110) 08/01/17 05:43 Random Glucose 120 mg/dL (65-105) H 07/31/17 05:35 Calcium 8.7 mg/dL (8.4-10.2) 07/31/17 05:35 Total Bilirubin 0.2 mg/dl (0.2-1.3) 07/29/17 10:18 AST 29 U/L (14-36) 07/29/17 10:18 ALT 30 U/L (9-52) 07/29/17 10:18 Alkaline Phosphatase 80 U/L (38-126) 07/29/17 10:18 Total Protein 7.9 G/DL (6.3-8.2) 07/29/17 10:18 Albumin 4.3 g/dL (3.5-5.0) 07/29/17 10:18 Globulin 3.7 gm/dL (2.2-3.9) 07/29/17 10:18 Albumin/Globulin Ratio 1.2 (1.0-2.1) 07/29/17 10:18 - Hospital Course Hospital Course: 67 y/o with chronic lower back pain with radiculopathy and functional limitation was admitted to [facility] and underwent lumbar laminectomy by Neurosurgery team. She is POD2 today and remained stable and improving after Sx. Today draiange was removed by NeurSx and patient is cleared to be DC home and f/u as outpatient Discharge Exam - Head Exam Head Exam: ATRAUMATIC, NORMAL INSPECTION, NORMOCEPHALIC - Eye Exam Eye Exam: EOMI, PERRL - ENT Exam ENT Exam: Mucous Membranes Moist - Respiratory Exam Respiratory Exam: Clear to PA & Lateral, NORMAL BREATHING PATTERN, UNREMARKABLE - Cardiovascular Exam Cardiovascular Exam: REGULAR RHYTHM, +S1, +S2. absent: Gallop - GI/Abdominal Exam GI & Abdominal Exam: Normal Bowel Sounds, Soft, Unremarkable. absent: Tenderness - Back Exam Back exam: muscle spasm, paraspinal tenderness, tenderness (Sx area. MIld. ). absent: rash noted - Neurological Exam Neurological exam: Alert, Oriented x3 - Psychiatric Exam Psychiatric exam: Normal Affect, Normal Mood - Skin Skin Exam: Normal Color, Warm Discharge Plan - Discharge Medications Prescriptions: oxyCODONE/Acetaminophen [Percocet 5/325 mg Tab] 1 tab PO Q8 #5 tab - Follow Up Plan Condition: STABLE Disposition: HOME/ ROUTINE Instructions: Low Back Pain (DC), Laminectomy (DC), Back Precautions Additional Instructions: follow up with dr james and primary md 7-10 days Referrals: Ralph James MD [Staff Provider] - Flakito Yee MD [Family Provider] -
[2017-08-01] MEDS ORDERED: Bacitracin OINT 15GM TOP SCH (17:00)
== END 2017-08-01 16:34 | disposition home or self-care (01) | DRG 517 ==
LOC: H.ER 09:20 → H.ERHOLD 09:30 → H.MEDSURG1 12:47
PROVIDERS: ADMIT Family Medicine; ATTEND Family Medicine
PROC: 01NB0ZZ Release Lumbar Nerve, Open Approach (ICD-10-PCS; principal; 2017-07-30 07:45)
DX: M47.816 Spondylosis without myelopathy or radiculopathy, lumbar region (principal); E10.9 Type 1 diabetes mellitus without complications; M51.17 Intervertebral disc disorders with radiculopathy, lumbosacral region; I10 Essential (primary) hypertension; E78.00 Pure hypercholesterolemia, unspecified; K59.00 Constipation, unspecified

== ENCOUNTER 2017-08-25 21:14 | Observation (INO) | payer MEDICARE, MEDICAID ==
[2017-08-25 22:00] LABS: BASO # 0.1 K/uL (0.0-0.2); EOS # 0.3 K/uL (0.0-0.7); EOS % 3.3 % (0.0-4.0); HEMOGLOBIN 11.5 g/dL (12.0-16.0); LYMPH # 2.1 K/uL (1.0-4.3); LYMPH % 25.1 % (20.0-40.0); MEAN CELL VOLUME 93.4 fl (81.0-99.0); MEAN CORPUSCULAR HEMOGLOBIN 30.7 pg (27.0-31.0); MEAN CORPUSCULAR HGB CONC 32.8 g/dL (33.0-37.0); MEAN PLATELET VOLUME 8.5 fl (7.2-11.7); MONO # 0.8 K/uL (0.0-0.8); MONO % 9.7 % (0.0-10.0); NEUT # 5.1 K/uL (1.8-7.0); NEUT % 60.9 % (50.0-75.0); NRBC % 0.1 % (0.0-0.0); RBC 3.74 Mil/uL (3.80-5.20); RED CELL DISTRIBUTION WIDTH 15.2 % (11.5-14.5); WHITE BLOOD COUNT 8.4 K/uL (4.8-10.8)
[2017-08-25 22:13] LABS: PROTHROMBIN TIME 10.8 Seconds (9.8-13.1)
[2017-08-25 22:20] LABS: B-TYPE NATRIURETIC PEPTIDE 63.3 pg/ml (0-900)
[2017-08-25 22:39] LABS: ALB/GLOB RATIO 1.1 (1.0-2.1); ALBUMIN 4.1 g/dL (3.5-5.0); ALT/SGPT 36 U/L (9-52); AST/SGOT 24 U/L (14-36); BLOOD UREA NITROGEN 21 mg/dl (7-17); CALCIUM 9.2 mg/dL (8.4-10.2); GFR AFRICAN-AMERICAN > 60; GFR NON-AFRICAN AMERICAN > 60
--- NOTE | 2017-08-25 22:44 | ED PDOC ---
HPI: SOB/CHF/COPD Time Seen by Provider: 08/25/17 21:36 Chief Complaint (Nursing): Shortness Of Breath Chief Complaint (Provider): Shortness of breath History Per: Patient History/Exam Limitations: no limitations Onset/Duration Of Symptoms: Days (1 week) Current Symptoms Are (Timing): Still Present Additional Complaint(s): 67yo female, with history of diabetes, hypertension and dislipidemia, presents to ED with complaints of shortness of breath for the past week. Patient reports 3 weeks ago, she had a diskectomy performed by Dr. Perez and after she went home, she has been experiencing increasing shortness of breath and also describes dyspnea on exertion, paroxysmal nocturnal dyspnea, and orthopnea. Patient also states she has noticed increasing leg swelling and has gained over 24lbs in the past 2 months. She also reports nausea but denies any vomiting, diarrhea, fever, or cough. Patient offers no other medical complaints. PMD: Dr. Yee Past Medical History Reviewed: Historical Data, Nursing Documentation, Vital Signs Vital Signs: Last Vital Signs Temp 98.1 F 08/26/17 00:01 Pulse 69 08/26/17 00:01 Resp 15 08/26/17 00:01 BP 127/63 08/26/17 00:01 Pulse Ox 98 08/26/17 00:01 - Medical History PMH: Diabetes, HTN, Hypercholesterolemia Denies: Chronic Kidney Disease - Surgical History Other surgeries: discectomy - Family History Family History: States: Unknown Family Hx - Home Medications Home Medications: Ambulatory Orders Medication Instructions Recorded Empagliflozin [Jardiance] 25 mg PO DAILY 07/29/17 Ergocalciferol (Vitamin D2) 50,000 unit PO SAT 07/29/17 [Vitamin D2] Gabapentin [Neurontin] 300 mg PO Q8 07/29/17 Glipizide [Glipizide ER] 5 mg PO BID 07/29/17 Icosapent Ethyl [Vascepa] 1 gm PO Q12 07/29/17 Lisinopril [Zestril] 10 mg PO DAILY 07/29/17 Pantoprazole Sodium [Protonix] 40 mg PO DAILY PRN 07/29/17 Rosuvastatin Calcium [Crestor] 20 mg PO DAILY 07/29/17 Pioglitazone [Actos] 30 mg PO DAILY 07/30/17 oxyCODONE/Acetaminophen [Percocet 1 tab PO Q8 PRN 08/26/17 5/325 mg Tab] - Allergies Allergies/Adverse Reactions: Allergies Allergy/AdvReac Type Severity Reaction Status Date / Time No Known Allergies Allergy Verified 08/25/17 21:23 Review of Systems ROS Statement: Except As Marked, All Systems Reviewed And Found Negative Constitutional: Positive for: Other (weight gain). Negative for: Fever Respiratory: Positive for: Shortness of Breath, Other (GARCIA, PND, orthopnea). Negative for: Cough Gastrointestinal: Positive for: Nausea. Negative for: Vomiting, Diarrhea Musculoskeletal: Positive for: Other (leg swelling) Physical Exam - Reviewed Nursing Documentation Reviewed: Yes Vital Signs Reviewed: Yes - Physical Exam Appears: Positive for: Non-toxic, No Acute Distress Head Exam: Positive for: ATRAUMATIC, NORMAL INSPECTION, NORMOCEPHALIC Skin: Positive for: Normal Color Eye Exam: Positive for: EOMI, PERRL Neck: Positive for: Supple Cardiovascular/Chest: Positive for: Regular Rate, Rhythm Respiratory: Positive for: Normal Breath Sounds. Negative for: Respiratory Distress Gastrointestinal/Abdominal: Positive for: Normal Exam, Soft. Negative for: Tenderness Back: Positive for: Normal Inspection Extremity: Positive for: Normal ROM, Pedal Edema (2+ edema, non-pitting) Neurologic/Psych: Positive for: Alert, Oriented. Negative for: Motor/Sensory Deficits - Laboratory Results Result Diagrams: 08/25/17 21:50 08/25/17 21:50 - ECG O2 Sat by Pulse Oximetry: 98 (RA) Pulse Ox Interpretation: Normal Medical Decision Making Medical Decision Making: Impression: 67yo female w/ dyspnea, lower extremity edema in setting of hypertension, recent discectomy Plan: -- Labs -- CXR -- EKG -- US Duplex bilateral lower extremity Reassess: --01:16 Labs reviewed and reveal no significantly significant abnormalities. However, Chest X-ray shows significant changes in cardiac silhouette, showing cardiomegaly, when compared to last [facility] X-ray on 07/29/17. In provider's opinion, he believes the patient currently exhibits CHF, even though her pro-BNP is normal after seeing the X-ray findings. Patient case was discussed with her PMD, Dr. Yee, who also agrees to admit the patient under observation. Diagnosis: Congestive Heart Failure Scribe Attestation: Documented by Carmen Goodman acting as a scribe for Michael Rankin MD. Provider Attestation: All medical record entries made by the Scribe were at my direction and personally dictated by me. I have reviewed the chart and agree that the record accurately reflects my personal performance of the history, physical exam, medical decision making, and the department course for this patient. I have also personally directed, reviewed, and agree with the discharge instructions and disposition. Disposition - Clinical Impression Clinical Impression: Congestive heart failure (CHF) - Patient ED Disposition Is Patient to be Admitted: Yes Discussed With DrCher: Flakito Yee Doctor Will See Patient In The: Hospital - Disposition Disposition Time: 01:16 Condition: FAIR Forms: [facility] (Faroese)
--- NOTE | 2017-08-25 23:21 | US ---
EXAM: US Duplex Bilateral Lower Extremity Veins CLINICAL HISTORY: 67 years old, female; Signs and symptoms; Swelling of limb; Lower extremity, bilateral; Additional info: Possible dvt TECHNIQUE: Real-time duplex ultrasound scan of the bilateral lower extremity veins integrating B-mode two-dimensional vascular structure, Doppler spectral analysis, color flow Doppler imaging and compression. COMPARISON: No relevant prior studies available. FINDINGS: Right deep veins: Normal color and spectral Doppler flow. Normal compressibility. No deep vein thrombosis from common femoral to popliteal vein. Right superficial veins: Unremarkable. Left deep veins: Normal color and spectral Doppler flow. Normal compressibility. No deep vein thrombosis from common femoral to popliteal vein. Left superficial veins: Unremarkable. Soft tissues: No popliteal cyst. IMPRESSION: No evidence of DVT within lower extremities.
[2017-08-26] MEDS ORDERED: Nitroglycerin 2% Ointment Foilpak UD TOP STA (01:12)
[2017-08-26] MEDS ORDERED: Nitroglycerin 2% Ointment Foilpak UD TOP ONE (01:23)
[2017-08-26] MEDS ORDERED: Pantoprazole 40 mg EC Tab PO PRN (05:43)
[2017-08-26] MEDS ORDERED: Oxycodone/Acetaminophen 5/325 mg Tab PO PRN (05:43)
[2017-08-26] MEDS ORDERED: Pneumococcal 23-Valent Vaccine IM ONE (06:00)
--- NOTE | 2017-08-26 07:40 | CARD ---
APPROVED REPORT EKG Measurement Heart [id number] <Conclusion> Sinus rhythm with 1st degree AV block Otherwise normal ECG
[2017-08-26] MEDS: GlipiZIDE 5 mg SR Tab PO SCH ×2 (08:22→16:27)
[2017-08-26] MEDS: Enoxaparin 40 mg Syringe SC SCH (08:24)
[2017-08-26] MEDS: Potassium Chloride 20 mEq ER Tab PO SCH ×2 (10:02→16:30)
--- NOTE | 2017-08-26 11:43 | CP.PCM.HP ---
<Arian Diaz - Last Filed: 08/26/17 11:40> History of Present Illness - History of Present Illness History of Present Illness: CC: dyspnea HPI: 67 y/o woman w/ pmh of NIDDM2, HTN, and HLD presented to ED with complaints of shortness of breath. Patient reports dyspnea for the past week. Patient was seen and evaluated at PMD Dr. Yee's office, given lasix, and counseled to go to ED for further evaluation. Patient is s/p lumbar laminectomy 3 weeks ago. Patient also states she has noticed paroxysmal dyspnea , orthopnea, needing at least 2 pillows to sleep propped up at night, increasing leg swelling and has gained over 24lbs in the past 2 months. She also reports nausea but denies any vomiting, headaches, chest pain, abdominal pain, diarrhea, dysuria, fever, or cough. Patient has no other medical complaints. PMD: Dr. Flakito Yee PMH: NIDDM2, HTN, and HLD meds: see med list Allergies: NKDA PSH: lumbar laminectomy 07/2017, varicose vein removal Fam: non-contributory SOC: denies smoking, alcohol, and drugs ROS: 12 points assessed and negative unless otherwise reported in HPI Present on Admission - Present on Admission Any Indicators Present on Admission: No History of DVT/PE: No History of Uncontrolled Diabetes: No Urinary Catheter: No Decubitus Ulcer Present: No Review of Systems - Review of Systems All systems: reviewed and no additional remarkable complaints except - Constitutional Constitutional: absent: Chills, Fever - EENT Eyes: absent: Change in Vision - Cardiovascular Cardiovascular: absent: Chest Pain - Respiratory Respiratory: As Per HPI, Dyspnea. absent: Cough - Gastrointestinal Gastrointestinal: absent: Abdominal Pain, Diarrhea, Nausea, Vomiting - Genitourinary Genitourinary: absent: Dysuria - Integumentary Integumentary: absent: Rash - Neurological Neurological: absent: Dizziness, Headaches Past Patient History - Past Medical History & Family History Past Medical History?: Yes - Past Social History Smoking Status: Never Smoked - CARDIAC Hx Hypercholesterolemia: Yes Hx Hypertension: Yes - PULMONARY Hx Respiratory Disorders: No - NEUROLOGICAL Hx Neurological Disorder: No - HEENT Hx HEENT Problems: No - RENAL Hx Chronic Kidney Disease: No - ENDOCRINE/METABOLIC Hx Endocrine Disorders: Yes Hx Diabetes Mellitus Type 1: Yes - HEMATOLOGICAL/ONCOLOGICAL Hx Blood Disorders: No - INTEGUMENTARY Hx Dermatological Problems: No - MUSCULOSKELETAL/RHEUMATOLOGICAL Hx Musculoskeletal Disorders: Yes Hx Back Pain: Yes Hx Falls: Yes - GASTROINTESTINAL Hx Gastrointestinal Disorders: No - GENITOURINARY/GYNECOLOGICAL Hx Genitourinary Disorders: No - PSYCHIATRIC Hx Psychophysiologic Disorder: No Hx Substance Use: No - SURGICAL HISTORY Hx Surgeries: Yes (Bilateral LE varicose veins removal) Hx Vascular Surgery: Yes (Varicose vein) Other/Comment: Mole removal surgery - ANESTHESIA Hx Anesthesia: Yes Hx Anesthesia Reactions: No Hx Malignant Hyperthermia: No Meds Home Medications: Home Medication List Medication Instructions Recorded Confirmed Type Furosemide [Lasix] 40 mg PO DAILY #30 tablet 08/27/17 Rx Allergies/Adverse Reactions: Allergies Allergy/AdvReac Type Severity Reaction Status Date / Time No Known Allergies Allergy Verified 08/25/17 21:23 Physical Exam - Constitutional Appears: Non-toxic, No Acute Distress - Head Exam Head Exam: ATRAUMATIC, NORMAL INSPECTION, NORMOCEPHALIC - Eye Exam Eye Exam: Normal appearance - ENT Exam ENT Exam: Mucous Membranes Moist - Neck Exam Neck exam: Positive for: Full Rom. Negative for: Tenderness - Respiratory Exam Respiratory Exam: Rales (bibasilar). absent: Accessory Muscle Use, Decreased Breath Sounds, Rhonchi, Wheezes, Respiratory Distress - Cardiovascular Exam Cardiovascular Exam: REGULAR RHYTHM. absent: Tachycardia - GI/Abdominal Exam GI & Abdominal Exam: Normal Bowel Sounds, Soft. absent: Distended, Tenderness - Extremities Exam Extremities exam: Positive for: pedal edema (+1). Negative for: calf tenderness , tenderness - Neurological Exam Neurological exam: Alert, Oriented x3 - Skin Skin Exam: Dry, Intact, Normal Color, Warm Results - Vital Signs Recent Vital Signs: Last Vital Signs Temp 97.4 F L 08/26/17 08:37 Pulse 59 L 08/26/17 08:37 Resp 18 08/26/17 08:37 BP 152/74 H 08/26/17 10:02 Pulse Ox 97 08/26/17 08:37 - Labs Result Diagrams: 08/25/17 21:50 08/25/17 21:50 Labs: Laboratory Results - last 24 hr 08/25/17 08/25/17 08/25/17 21:50 21:50 21:50 WBC 8.4 RBC 3.74 L Hgb 11.5 L Hct 34.9 MCV 93.4 MCH 30.7 MCHC 32.8 L RDW 15.2 H Plt Count 236 MPV 8.5 Neut % (Auto) 60.9 Lymph % (Auto) 25.1 [place] % (Auto) 9.7 Eos % (Auto) 3.3 Baso % (Auto) 1.0 Neut # (Auto) 5.1 Lymph # (Auto) 2.1 [place] # (Auto) 0.8 Eos # (Auto) 0.3 Baso # (Auto) 0.1 PT 10.8 INR 1.0 APTT 30.0 D-Dimer, Quantitative Sodium 145 Potassium 4.0 Chloride 105 Carbon Dioxide 24 Anion Gap 20 BUN 21 H Creatinine 0.7 Est GFR ( Amer) > 60 Est GFR (Non-Af Amer) > 60 POC Glucose (mg/dL) Random Glucose 98 Calcium 9.2 Total Bilirubin 0.3 AST 24 ALT 36 Alkaline Phosphatase 81 Troponin I < 0.0120 NT-Pro-B Natriuret Pep 63.3 Total Protein 7.7 Albumin 4.1 Globulin 3.7 Albumin/Globulin Ratio 1.1 08/26/17 08/26/17 08/26/17 05:20 10:24 11:23 WBC RBC Hgb Hct MCV MCH MCHC RDW Plt Count MPV Neut % (Auto) Lymph % (Auto) [place] % (Auto) Eos % (Auto) Baso % (Auto) Neut # (Auto) Lymph # (Auto) [place] # (Auto) Eos # (Auto) Baso # (Auto) PT INR APTT D-Dimer, Quantitative 574 H Sodium Potassium Chloride Carbon Dioxide Anion Gap BUN Creatinine Est GFR ( Amer) Est GFR (Non-Af Amer) POC Glucose (mg/dL) 74 80 Random Glucose Calcium Total Bilirubin AST ALT Alkaline Phosphatase Troponin I NT-Pro-B Natriuret Pep Total Protein Albumin Globulin Albumin/Globulin Ratio Assessment & Plan (1) Acute CHF (congestive heart failure) Status: Acute (2) HTN (hypertension) Status: Chronic (3) Diabetes mellitus, type 2 Status: Chronic (4) HLD (hyperlipidemia) Status: Chronic - Assessment and Plan (Free Text) Plan: c/w present management c/w home medications except TZDs afebrile, non-tachycardic, normotensive cardiology consult ordered EKst degree AV block, no acute ST elevation/depression CXR: (preliminary) no active pulmonary disease process lower extremity U/S: no DVT f/u echo CBC: 8.4>11.5/34.9<236 CMP: 145/4.0, 105/24, 21/0.7, glucose 98, AST 24, ALT 36, alk phos 81 troponin: <0.0120 pro-BNP: 63.3 f/u troponin x2 lasix 40 mg IV BID prophylactic measures: DVT lovenox 40 mg SC daily monitor for acute changes <Flakito Yee - Last Filed: 08/27/17 11:11> Results - Vital Signs Recent Vital Signs: Last Vital Signs Temp 97.6 F 08/27/17 07:55 Pulse 71 08/27/17 08:47 Resp 18 08/27/17 07:55 BP 112/69 08/27/17 08:47 Pulse Ox 97 08/27/17 07:55 - Labs Result Diagrams: 08/25/17 21:50 08/25/17 21:50 Labs: Laboratory Results - last 24 hr 08/26/17 08/26/17 08/26/17 11:23 12:56 16:12 POC Glucose (mg/dL) 80 110 Troponin I < 0.0120 08/26/17 08/26/17 08/26/17 19:52 21:10 21:20 POC Glucose (mg/dL) 95 111 H Troponin I < 0.0120 08/27/17 05:29 POC Glucose (mg/dL) 84 Troponin I Assessment & Plan - Assessment and Plan (Free Text) Plan: I was present during evaluation and discussed with Dr Diaz re plans of care and treatment. Flakito Yee M.D.
--- NOTE | 2017-08-26 13:43 | RAD ---
HISTORY: Shortness of breath COMPARISON: 07/29/2017 FINDINGS: LUNGS: No active pulmonary disease. PLEURA: No significant pleural effusion identified, no pneumothorax apparent. CARDIOVASCULAR: Normal. OSSEOUS STRUCTURES: No significant abnormalities. VISUALIZED UPPER ABDOMEN: Normal. OTHER FINDINGS: None. IMPRESSION: No active disease. No significant interval change compared to the prior examination(s).
--- NOTE | 2017-08-26 13:45 | CARD ---
APPROVED REPORT EXAM: Two-dimensional and M-mode echocardiogram with Doppler and color Doppler. Other Information Quality : GoodRhythm : NSR INDICATION Congestive Heart Failure 2D DIMENSIONS IVSd0.96 (0.7-1.1cm)LVDd4.35 (3.9-5.9cm) LVOT Diameter1.85 (1.8-2.4cm)PWd1.02 (0.7-1.1cm) IVSs1.55 (0.8-1.2cm)LVDs2.47 (2.5-4.0cm) FS (%) 43.1 %PWs1.26 (0.8-1.2cm) M-Mode DIMENSIONS Left Atrium (MM)3.25 (2.5-4.0cm)IVSd0.93 (0.7-1.1cm) Aortic Root2.96 (2.2-3.7cm)LVDd4.64 (4.0-5.6cm) Aortic Cusp Exc.2.01 (1.5-2.0cm)PWd0.84 (0.7-1.1cm) IVSs1.24 cmFS (%) 43 % LVDs2.63 (2.0-3.8cm)PWs1.24 cm Mitral Valve MV E Tkaqkkbq50.9cm/sMV DECEL [id number] A Opajtvrz81.0cm/s MV MII51tpA/A ratio0.8MVA (PHT)3.59cm2 TDI Lateral E' Peak V9.13cm/sMedial E' Peak V8.72cm/sE/Lateral E'7.9 E/Medial E'8.2 Pulmonary Valve PV Peak Jvtdhfwz71.4cm/s Tricuspid Valve TR Peak Ljeerkwa095lm/sRAP [id number] Peak Gr.25mmHg [id number] LEFT VENTRICLE The left ventricle is normal size. There is normal left ventricular wall thickness. The left ventricular function is normal. The left ventricular ejection fraction is within the normal range. The Ejection Fraction is 60-65%. There is normal LV segmental wall motion. Transmitral Doppler flow pattern is Grade I-abnormal relaxation pattern. RIGHT VENTRICLE The right ventricle is normal size. The right ventricular systolic function is normal. ATRIA The left atrium size is normal. The right atrium size is normal. AORTIC VALVE The aortic valve is normal in structure. No aortic regurgitation is present. There is no aortic valvular stenosis. MITRAL VALVE The mitral valve is normal in structure. There is no mitral valve stenosis. There is no mitral valve regurgitation noted. TRICUSPID VALVE The tricuspid valve is normal in structure. There is no tricuspid valve regurgitation noted. There is no tricuspid valve stenosis. PULMONIC VALVE The pulmonary valve is normal in structure. There is no pulmonic valvular regurgitation. GREAT VESSELS The aortic root is normal in size. The IVC is normal in size and collapses >50% with inspiration. PERICARDIAL EFFUSION The pericardium appears normal. <Conclusion> The left ventricle is normal size. The left ventricular function is normal. The left ventricular ejection fraction is within the normal range. The Ejection Fraction is 60-65%.
[2017-08-26 20:11] VITALS: RESP 18
--- NOTE | 2017-08-26 21:07 | CP.PCM.CON ---
History of Present Illness - History of Present Illness History of Present Illness: I was asked to evaluate patient by Dr Yee. Patient is a 67 year old female with PMH HTN, hypercholesterolemia DM who presents with dyspnea. She had a laminiectomy 3 weeks ago, and states she has developed progressive lower extremity swelling and body ache. She has noted progressive dyspnea and presented for further evaluation. Review of Systems - Constitutional Constitutional: absent: As Per HPI, Anorexia, Chills, Daytime Sleepiness, Excessive Sweating, Fatigue, Fever, Frequent Falls, Headache, Increased Appetite , Lethargy, Malaise, Night Sweats, Snoring, Sleep Apnea, Weight Gain, Weight Loss, Weakness, Other - EENT Eyes: absent: As Per HPI, Blind Spots, Blurred Vision, Change in Vision, Decreased Night Vision, Diplopia, Discharge, Dry Eye, Exophthalmos, Floaters, Irritation, Itchy Eyes, Loss of Peripheral Vision, Pain, Photophobia, Requires Corrective Lenses, Sees Flashes, Spots in Vision, Tunnel Vision, Other Visual Disturbances, Loss of Vision, Other Ears: absent: As Per HPI, Decreased Hearing, Ear Discharge, Ear Pain, Tinnitus, Abnormal Hearing, Disequilibrium, Dizziness, Other Nose/Mouth/Throat: absent: As Per HPI, Epistaxis, Nasal Congestion, Nasal Discharge, Nasal Obstruction, Nasal Trauma, Nose Pain, Post Nasal Drip, Sinus Pain, Sinus Pressure, Bleeding Gums, Change in Voice, Dental Pain, Dry Mouth, Dysphagia, Halitosis, Hoarsness, Lip Swelling, Mouth Lesions, Mouth Pain, Odynophagia, Sore Throat, Throat Swelling, Tongue Swelling, Facial Pain, Neck Pain, Neck Mass, Other - Cardiovascular Cardiovascular: Dyspnea, Leg Edema - Respiratory Respiratory: Dyspnea - Gastrointestinal Gastrointestinal: absent: As Per HPI, Abdominal Pain, Belching, Bloating, Change in Bowel Habits, Change in Stool Character, Coffee Ground Emesis, Constipation, Cramping, Diarrhea, Dyspepsia, Dysphagia, Early Satiety, Excessive Flatus, Fecal Incontinence, Heartburn, Hematemesis, Hematochezia, Loose Stools, Melena, Nausea, Odynophagia, Temesmus, Vomiting, Other - Genitourinary Genitourinary: absent: As Per HPI, Change in Urinary Stream, Difficulty Urinating, Dysuria, Flank Pain, Hematuria, Pyuria, Nocturia, Urinary Incontinence, Urinary Frequency, Urinary Hesitance, Urinary Urgency, Voiding Freq/Small Amts, Freq UTI, Hx Renal/Bladder Calculi, Hx /Renal Surgery, Bladder Distension, Other - Musculoskeletal Musculoskeletal: absent: As Per HPI, Abnormal Gait, Arthralgias, Atrophy, Back Pain, Deformity, Joint Swelling, Limited Range of Motion, Loss of Height, Muscle Cramps, Muscle Weakness, Myalgias, Neck Pain, Numbness, Radiating Pain into Limb, Stiffness, Tingling, Other - Integumentary Integumentary: absent: As Per HPI, Acne, Alopecia, Bleeding Lesions, Change in Hair, Change in Nails, Change in Pigmentation, Changing Lesions, Dry Skin, Erythema, Furuncle, Hirsutism, Lesions, New Lesions, Non-Healing Lesions, Photosensitivity, Pruritus, Rash, Skin Pain, Skin Ulcer, Sores, Striae, Swelling , Unusual Bruising, Wounds, Jaundice, Other - Neurological Neurological: absent: As Per HPI, Abnormal Gait, Abnormal Hearing, Abnormal Movements, Abnormal Speech, Behavioral Changes, Burning Sensations, Confusion, Convulsions, Disequilibrium, Dizziness, Numbness, Focal Weakness, Frequent Falls , Headaches, Lack of Coordination, Loss of Vision, Memory Loss, Paresthesias, Radicular Pain, Restless Legs, Sensory Deficit, Syncope, Tingling, Tremor, Vertigo, Weakness, Other Visual Disturbances, Other - Psychiatric Psychiatric: absent: As Per HPI, Abnormal Sleep Pattern, Anhedonia, Anxiety, Auditory Hallucinations, Behavioral Changes, Change in Appetite, Change in Libido, Confusion, Depression, Difficulty Concentrating, Hallucinations, Homicidal Ideation, Hopelessness, Irritability, Memory Loss, Mood Swings, Panic Attacks, Paranoia, Suicidal Ideation, Visual Hallucinations, Tactile Hallucinations, Other - Endocrine Endocrine: absent: As Per HPI, Change in Body Appearance, Change in Libido, Cold Intolorance, Deepening of Voice, Excessive Sweating, Fatigue, Flushing, Heat Intolorance, Increase in Ring/Shoe/Hat Size, Palpitations, Polydipsia, Polyphagia, Polyuria, Other - Hematologic/Lymphatic Hematologic: absent: As Per HPI, Easy Bleeding, Easy Bruising, Lymphadenopathy, Other Past Patient History - Past Medical History & Family History Past Medical History?: Yes - Past Social History Smoking Status: Never Smoked - CARDIAC Hx Hypercholesterolemia: Yes Hx Hypertension: Yes - PULMONARY Hx Respiratory Disorders: No - NEUROLOGICAL Hx Neurological Disorder: No - HEENT Hx HEENT Problems: No - RENAL Hx Chronic Kidney Disease: No - ENDOCRINE/METABOLIC Hx Endocrine Disorders: Yes Hx Diabetes Mellitus Type 1: Yes - HEMATOLOGICAL/ONCOLOGICAL Hx Blood Disorders: No - INTEGUMENTARY Hx Dermatological Problems: No - MUSCULOSKELETAL/RHEUMATOLOGICAL Hx Musculoskeletal Disorders: Yes Hx Back Pain: Yes Hx Falls: Yes - GASTROINTESTINAL Hx Gastrointestinal Disorders: No - GENITOURINARY/GYNECOLOGICAL Hx Genitourinary Disorders: No - PSYCHIATRIC Hx Psychophysiologic Disorder: No Hx Substance Use: No - SURGICAL HISTORY Hx Surgeries: Yes (Bilateral LE varicose veins removal) Hx Vascular Surgery: Yes (Varicose vein) Other/Comment: Mole removal surgery - ANESTHESIA Hx Anesthesia: Yes Hx Anesthesia Reactions: No Hx Malignant Hyperthermia: No Meds Allergies/Adverse Reactions: Allergies Allergy/AdvReac Type Severity Reaction Status Date / Time No Known Allergies Allergy Verified 08/25/17 21:23 - Medications Medications: Current Medications Atorvastatin Calcium (Lipitor) 10 mg PO DAILY [facility] Last Admin: 08/26/17 08:22 Dose: 10 mg Enoxaparin Sodium (Lovenox) 40 mg SC DAILY [facility] PRN Reason: Protocol Last Admin: 08/26/17 08:24 Dose: 40 mg Ergocalciferol (Drisdol 50,000 Intl Units Cap) 1 cap PO SAT [facility] Furosemide (Lasix) 40 mg IVP BID [facility] Last Admin: 08/26/17 16:30 Dose: 40 mg Gabapentin (Neurontin) 300 mg PO Q8 [facility] Last Admin: 08/26/17 16:27 Dose: 300 mg Glipizide (Glucotrol Xl) 5 mg PO BID [facility] Last Admin: 08/26/17 16:27 Dose: 5 mg Home Med (Empagliflozin [Jardiance]) 25 mg PO DAILY [facility] Last Admin: 08/26/17 16:26 Dose: 25 mg Home Med (Icosapent Ethyl [Vascepa]) 1 gm PO Q12 [facility] Last Admin: 08/26/17 11:30 Dose: 1 gm Lisinopril (Zestril) 10 mg PO DAILY [facility] Last Admin: 08/26/17 08:24 Dose: 10 mg Oxycodone/Acetaminophen (Percocet 5/325 Mg Tab) 1 tab PO Q8 PRN PRN Reason: Pain, moderate (4-7) Stop: 08/29/17 05:44 Pantoprazole Sodium (Protonix Ec Tab) 40 mg PO DAILY PRN PRN Reason: GI distress Potassium Chloride (K-Dur 20 Meq Er Tab) 20 meq PO BID [facility] Last Admin: 08/26/17 16:30 Dose: 20 meq Physical Exam - Constitutional Appears: Non-toxic - Head Exam Head Exam: NORMAL INSPECTION - Eye Exam Eye Exam: Normal appearance - ENT Exam ENT Exam: Mucous Membranes Moist, Normal Exam - Neck Exam Neck exam: Positive for: Normal Inspection - Respiratory Exam Respiratory Exam: Clear to Auscultation Bilateral, NORMAL BREATHING PATTERN - Cardiovascular Exam Cardiovascular Exam: REGULAR RHYTHM - GI/Abdominal Exam GI & Abdominal Exam: Normal Bowel Sounds - Rectal Exam Rectal Exam: Deferred - Extremities Exam Extremities exam: Negative for: pedal edema - Back Exam Back exam: NORMAL INSPECTION - Neurological Exam Neurological exam: Alert, Oriented x3 - Psychiatric Exam Psychiatric exam: Normal Affect - Skin Skin Exam: Normal Color Results - Vital Signs Recent Vital Signs: Last Vital Signs Temp 97.6 F 08/26/17 20:11 Pulse 58 L 08/26/17 20:41 Resp 18 08/26/17 20:11 BP 135/74 08/26/17 20:11 Pulse Ox 96 08/26/17 20:11 - Labs Result Diagrams: 08/25/17 21:50 08/25/17 21:50 Labs: Laboratory Results - last 24 hr 08/25/17 08/25/17 08/25/17 21:50 21:50 21:50 WBC 8.4 RBC 3.74 L Hgb 11.5 L Hct 34.9 MCV 93.4 MCH 30.7 MCHC 32.8 L RDW 15.2 H Plt Count 236 MPV 8.5 Neut % (Auto) 60.9 Lymph % (Auto) 25.1 [place] % (Auto) 9.7 Eos % (Auto) 3.3 Baso % (Auto) 1.0 Neut # (Auto) 5.1 Lymph # (Auto) 2.1 [place] # (Auto) 0.8 Eos # (Auto) 0.3 Baso # (Auto) 0.1 PT 10.8 INR 1.0 APTT 30.0 D-Dimer, Quantitative Sodium 145 Potassium 4.0 Chloride 105 Carbon Dioxide 24 Anion Gap 20 BUN 21 H Creatinine 0.7 Est GFR ( Amer) > 60 Est GFR (Non-Af Amer) > 60 POC Glucose (mg/dL) Random Glucose 98 Calcium 9.2 Total Bilirubin 0.3 AST 24 ALT 36 Alkaline Phosphatase 81 Troponin I < 0.0120 NT-Pro-B Natriuret Pep 63.3 Total Protein 7.7 Albumin 4.1 Globulin 3.7 Albumin/Globulin Ratio 1.1 08/26/17 08/26/17 08/26/17 05:20 10:24 11:23 WBC RBC Hgb Hct MCV MCH MCHC RDW Plt Count MPV Neut % (Auto) Lymph % (Auto) [place] % (Auto) Eos % (Auto) Baso % (Auto) Neut # (Auto) Lymph # (Auto) [place] # (Auto) Eos # (Auto) Baso # (Auto) PT INR APTT D-Dimer, Quantitative 574 H Sodium Potassium Chloride Carbon Dioxide Anion Gap BUN Creatinine Est GFR ( Amer) Est GFR (Non-Af Amer) POC Glucose (mg/dL) 74 80 Random Glucose Calcium Total Bilirubin AST ALT Alkaline Phosphatase Troponin I NT-Pro-B Natriuret Pep Total Protein Albumin Globulin Albumin/Globulin Ratio 08/26/17 12:56 WBC RBC Hgb Hct MCV MCH MCHC RDW Plt Count MPV Neut % (Auto) Lymph % (Auto) [place] % (Auto) Eos % (Auto) Baso % (Auto) Neut # (Auto) Lymph # (Auto) [place] # (Auto) Eos # (Auto) Baso # (Auto) PT INR APTT D-Dimer, Quantitative Sodium Potassium Chloride Carbon Dioxide Anion Gap BUN Creatinine Est GFR ( Amer) Est GFR (Non-Af Amer) POC Glucose (mg/dL) Random Glucose Calcium Total Bilirubin AST ALT Alkaline Phosphatase Troponin I < 0.0120 NT-Pro-B Natriuret Pep Total Protein Albumin Globulin Albumin/Globulin Ratio - EKG Data EKG Interpreted by: Myself EKG shows normal: Sinus rhythm Assessment & Plan (1) Diabetes mellitus, type 2 Assessment and Plan: I reviewed the echocardiogram. Left ventricular function is normal and there are no valvular abnormalities. The patient has normal cardiac enzymes, and the pro BNP is not elevated. Her presentation does not appear consistent with acute coronary syndrome. Given diabetes she has risk factors for CAD. She would benefit from nuclear stress testing which will be scheduled as an outpatient. Patient is stable for discharge in the am. Status: Chronic (2) HTN (hypertension) Assessment and Plan: blood pressure control Status: Chronic
[2017-08-27 04:52] VITALS: O2SAT 97
[2017-08-27 07:56] VITALS: BP 112/69; PULSE 71; TEMP 97.6
[2017-08-27] MEDS: Enoxaparin 40 mg Syringe SC SCH (08:46)
[2017-08-27] MEDS: GlipiZIDE 5 mg SR Tab PO SCH (08:46)
[2017-08-27] MEDS: Potassium Chloride 20 mEq ER Tab PO SCH (08:46)
--- NOTE | 2017-08-27 11:15 | CP.PCM.DIS ---
Provider - Provider Date of Admission: 08/26/17 01:11 Attending physician: Flakito Yee MD Time Spent in preparation of Discharge (in minutes): 30 Hospital Course - Lab Results Lab Results: Most Recent Lab Values WBC 8.4 K/uL (4.8-10.8) 08/25/17 21:50 RBC 3.74 Mil/uL (3.80-5.20) L 08/25/17 21:50 Hgb 11.5 g/dL (12.0-16.0) L 08/25/17 21:50 Hct 34.9 % (34.0-47.0) 08/25/17 21:50 MCV 93.4 fl (81.0-99.0) 08/25/17 21:50 MCH 30.7 pg (27.0-31.0) 08/25/17 21:50 MCHC 32.8 g/dL (33.0-37.0) L 08/25/17 21:50 RDW 15.2 % (11.5-14.5) H 08/25/17 21:50 Plt Count 236 K/uL (130-400) 08/25/17 21:50 MPV 8.5 fl (7.2-11.7) 08/25/17 21:50 Neut % (Auto) 60.9 % (50.0-75.0) 08/25/17 21:50 Lymph % (Auto) 25.1 % (20.0-40.0) 08/25/17 21:50 [place] % (Auto) 9.7 % (0.0-10.0) 08/25/17 21:50 Eos % (Auto) 3.3 % (0.0-4.0) 08/25/17 21:50 Baso % (Auto) 1.0 % (0.0-2.0) 08/25/17 21:50 Neut # (Auto) 5.1 K/uL (1.8-7.0) 08/25/17 21:50 Lymph # (Auto) 2.1 K/uL (1.0-4.3) 08/25/17 21:50 [place] # (Auto) 0.8 K/uL (0.0-0.8) 08/25/17 21:50 Eos # (Auto) 0.3 K/uL (0.0-0.7) 08/25/17 21:50 Baso # (Auto) 0.1 K/uL (0.0-0.2) 08/25/17 21:50 PT 10.8 Seconds (9.8-13.1) 08/25/17 21:50 INR 1.0 (0.9-1.2) 08/25/17 21:50 APTT 30.0 Seconds (25.6-37.1) 08/25/17 21:50 D-Dimer, Quantitative 574 ng/mlDDU (0-230) H 08/26/17 10:24 Sodium 145 mmol/l (132-148) 08/25/17 21:50 Potassium 4.0 MMOL/L (3.6-5.0) 08/25/17 21:50 Chloride 105 mmol/L (98-107) 08/25/17 21:50 Carbon Dioxide 24 mmol/L (22-30) 08/25/17 21:50 Anion Gap 20 (10-20) 08/25/17 21:50 BUN 21 mg/dl (7-17) H 08/25/17 21:50 Creatinine 0.7 mg/dl (0.7-1.2) 08/25/17 21:50 Est GFR ( Amer) > 60 08/25/17 21:50 Est GFR (Non-Af Amer) > 60 08/25/17 21:50 POC Glucose (mg/dL) 84 mg/dL (65-110) 08/27/17 05:29 Random Glucose 98 mg/dL (65-105) 08/25/17 21:50 Calcium 9.2 mg/dL (8.4-10.2) 08/25/17 21:50 Total Bilirubin 0.3 mg/dl (0.2-1.3) 08/25/17 21:50 AST 24 U/L (14-36) 08/25/17 21:50 ALT 36 U/L (9-52) 08/25/17 21:50 Alkaline Phosphatase 81 U/L (38-126) 08/25/17 21:50 Troponin I < 0.0120 ng/mL (0.00-0.120) 08/26/17 21:10 NT-Pro-B Natriuret Pep 63.3 pg/ml (0-900) 08/25/17 21:50 Total Protein 7.7 G/DL (6.3-8.2) 08/25/17 21:50 Albumin 4.1 g/dL (3.5-5.0) 08/25/17 21:50 Globulin 3.7 gm/dL (2.2-3.9) 08/25/17 21:50 Albumin/Globulin Ratio 1.1 (1.0-2.1) 08/25/17 21:50 - Hospital Course Hospital Course: This is a 67 y/o female admitted for worsening of SOB, bilateral pitting leg edema and weight gain of more than 10 pounds in 1 month. Admitted with a dx of acute CHF. She was started on IV Lasix and maintained on lasix 40 mg BID. She responded very well and quickly and was sent home in stable condition She was seen by Dr Bhakta. ECHO showed normal EF. She was noted to be taking Pioglitazone hence was discontinued. She was started on metformin and her accucheck has been stable. Discharge Exam - Head Exam Head Exam: NORMAL INSPECTION - Eye Exam Eye Exam: Normal appearance - Respiratory Exam Respiratory Exam: NORMAL BREATHING PATTERN - Cardiovascular Exam Cardiovascular Exam: REGULAR RHYTHM - GI/Abdominal Exam GI & Abdominal Exam: Normal Bowel Sounds - Neurological Exam Neurological exam: CN II-XII Intact - Psychiatric Exam Psychiatric exam: Normal Mood Discharge Plan - Discharge Medications Prescriptions: Furosemide [Lasix] 40 mg PO DAILY #30 tablet - Follow Up Plan Condition: FAIR Disposition: HOME/ ROUTINE Additional Instructions: denies co, sob, fever, chills, decreased edema pt. cleared for d/c to home today by and Rx for meds provided an e rx dent to pharmacy pt. will have outpatient stress test- f/u with outpatient advised follow up in my office in 1 week flakito Yee M.D. Referrals: Graciela Recinos MD [Family Provider] - Maria C Bhakta MD [Staff Provider] -
[2017-08-30] MEDS ORDERED: Ergocalciferol 50,000 Intl Units Cap PO SCH (09:00)
== END 2017-08-27 13:49 | disposition home or self-care (01) ==
LOC: H.ER 21:14 → H.ERHOLD 08-26 01:11 → H.TEL 08-26 02:23
PROVIDERS: ADMIT Family Medicine; ATTEND Family Medicine
DX: I11.0 Hypertensive heart disease with heart failure (principal); I50.9 Heart failure, unspecified; E11.9 Type 2 diabetes mellitus without complications; E78.5 Hyperlipidemia, unspecified; E78.00 Pure hypercholesterolemia, unspecified; Z23 Encounter for immunization
CPT/HCPCS: 36415; 71045; 80053; 81025; 82948; 83880; 84484; 85025; 85378; 85610; 85730; 90471; 90732; 93005; 93306; 93970; 99285; G0378; J1650; J1940